=== PATIENT | male | born 1985 | race Caucasian/White ===

== ENCOUNTER 2024-02-28 21:34 | Observation (INO) | payer OTHER ==
[~2024-02-28] VITALS: Ht 185.4 cm; Wt 83.9 kg
[2024-02-28] MEDS ORDERED: ZOLOFT10013 PO (22:40)
[2024-02-29 00:54] LABS: BASOPHILS ABSOLUTE AUTO 0.03 K/mm3 (0.00-0.23); BASOPHILS PERCENT AUTO 0 % (0-2); EOSINOPHILS ABSOLUTE AUTO 0.03 K/mm3 (0.00-0.68); EOSINOPHILS PERCENT AUTO 0 % (0-6); Hemoglobin 14.1 g/dL (13.5-17.5); IMMATURE GRAN ABSOLUTE AUTO 0.02 K/mm3 (0.00-0.10); IMMATURE GRAN PERCENT AUTO 0 % (0-1); LYMPHOCYTES ABSOLUTE AUTO 3.96 K/mm3 (0.84-5.20); LYMPHOCYTES PERCENT AUTO 51 % (21-46); MONOCYTES ABSOLUTE AUTO 0.78 K/mm3 (0.16-1.47); MONOCYTES PERCENT AUTO 10 % (4-13); Mean Corpuscular HGB 29.4 pg (26.0-34.0); Mean Corpuscular HGB Conc 33.6 g/dL (31.5-36.5); Mean Corpuscular Volume 88 fL (80-100); Mean Platelet Volume 9.8 fL (9.1-12.4); NEUTROPHILS ABSOLUTE AUTO 3.01 K/mm3 (1.96-9.15); NEUTROPHILS PERCENT AUTO 38 % (41-73); Platelet Count 304 K/mm3 (150-400); RDW Coefficient Variation 13.2 % (11.7-14.2); RDW Standard Deviation 42.5 fL (35.1-46.3); Red Blood Cell Count 4.79 M/mm3 (4.30-5.90); White Blood Cell Count 7.83 K/mm3 (4.00-11.30)
[2024-02-29 01:19] LABS: Ethanol (Alcohol), Blood, Med <3 mg/dL; Salicylate <1.7 mg/dL (2.8-20.0)
[2024-02-29 01:20] LABS: Acetaminophen, Random <2.0 ug/mL (10.0-30.0); Alanine Aminotransfer (ALT/SGP 24 U/L (12-78); Albumin, Blood 4.1 g/dL (3.4-5.0); Albumin/Globulin Ratio 1.1 (0.8-1.8); Alk Phos 75 U/L (50-136); Anion Gap 10 mmol/L (3-11); Aspartate Aminotrans (AST/SGOT 18 U/L (12-37); Bilirubin, Total 0.7 mg/dL (0.1-1.0); Blood Urea Nitrogen 21 mg/dL (8-24); Bun/Creatinine Ratio 20.4 (12.0-20.0); CO2, Blood 26 mmol/L (21-32); Calcium, Blood 8.6 mg/dL (8.5-10.1); Chloride, Blood 107 mmol/L (98-108); Creatinine, Blood 1.03 mg/dL (0.60-1.20); Globulin, Blood 3.7 g/dL (2.2-4.0); Glomerular Filtration Rate 97 (60-); Glucose, Blood 96 mg/dL (70-99); Potassium, Blood 3.5 mmol/L (3.5-5.5); Sodium, Blood 139 mmol/L (136-145); Total Protein, Blood 7.8 g/dL (6.4-8.2)
[2024-02-29 10:27] VITALS: BP 108/59
== END 2024-02-29 11:00 | disposition home or self-care (01) ==
LOC: ER 21:34 → EOR 21:35
PROVIDERS: ADMIT Student in an Organized Health Care Education/Training Program
DX: F32.A Depression, unspecified (principal); R45.851 Suicidal ideations; G47.00 Insomnia, unspecified; Z79.899 Other long term (current) drug therapy
CPT/HCPCS: 36415; 80053; 85025; 93005; 93010; 99285-25; G0378; G0480

== ENCOUNTER 2024-03-19 01:32 | Observation (INO) | payer OTHER ==
[~2024-03-19] VITALS: Ht 182.9 cm; Wt 81.1 kg
[~2024-03-19 01:32] MED LIST: ZOLOFT10013 PO
[2024-03-19] MEDS ORDERED: [UNRECOGNIZED DRUG - OTHER] IV ONE (01:45)
[2024-03-19] MEDS ORDERED: LORazepam 2 MG/ML 1ML Injection IV PRN ×2 (01:45→03:20)
[2024-03-19] MEDS ORDERED: NS 1,000 ML IV SCH (01:45)
[2024-03-19] MEDS ORDERED: Magnesium Sulf 2 GM/Water 50ML 50 ML IV ONE (01:50)
[2024-03-19] MEDS ORDERED: [UNRECOGNIZED DRUG - OTHER] IV ONE (01:55)
[2024-03-19 02:15] LABS: Ethanol (Alcohol), Blood, Med 4 mg/dL; Salicylate 1.7 mg/dL (2.8-20.0)
[2024-03-19 02:18] LABS: Alanine Aminotransfer (ALT/SGP 23 U/L (12-78); Albumin, Blood 4.2 g/dL (3.4-5.0); Albumin/Globulin Ratio 1.2 (0.8-1.8); Alk Phos 77 U/L (50-136); Anion Gap 13 mmol/L (3-11); Aspartate Aminotrans (AST/SGOT 16 U/L (12-37); Bilirubin, Total 0.5 mg/dL (0.1-1.0); Blood Urea Nitrogen 18 mg/dL (8-24); Bun/Creatinine Ratio 18.7 (12.0-20.0); CO2, Blood 24 mmol/L (21-32); Calcium, Blood 8.4 mg/dL (8.5-10.1); Chloride, Blood 105 mmol/L (98-108); Creatinine, Blood 0.96 mg/dL (0.60-1.20); Globulin, Blood 3.6 g/dL (2.2-4.0); Glomerular Filtration Rate 105 (60-); Glucose, Blood 96 mg/dL (70-99); Potassium, Blood 3.1 mmol/L (3.5-5.5); Sodium, Blood 139 mmol/L (136-145); Total Protein, Blood 7.8 g/dL (6.4-8.2)
[2024-03-19 02:19] LABS: Acetaminophen, Random <2.0 ug/mL (10.0-30.0)
[2024-03-19] MEDS ORDERED: Potassium Chloride 40 MEQ in NS 250 ML IV ONE (03:10)
[2024-03-19] MEDS ORDERED: Lactated Ringer's 1,000 ML IV ONE (03:10)
[2024-03-19 03:20] LABS: BASOPHILS ABSOLUTE AUTO 0.04 K/mm3 (0.00-0.23); BASOPHILS PERCENT AUTO 1 % (0-2); EOSINOPHILS ABSOLUTE AUTO 0.02 K/mm3 (0.00-0.68); EOSINOPHILS PERCENT AUTO 0 % (0-6); Hematocrit 41.7 % (37.0-53.0); Hemoglobin 13.6 g/dL (13.5-17.5); IMMATURE GRAN ABSOLUTE AUTO 0.01 K/mm3 (0.00-0.10); IMMATURE GRAN PERCENT AUTO 0 % (0-1); LYMPHOCYTES ABSOLUTE AUTO 2.53 K/mm3 (0.84-5.20); LYMPHOCYTES PERCENT AUTO 37 % (21-46); MONOCYTES ABSOLUTE AUTO 0.74 K/mm3 (0.16-1.47); MONOCYTES PERCENT AUTO 11 % (4-13); Mean Corpuscular HGB 28.8 pg (26.0-34.0); Mean Corpuscular HGB Conc 32.6 g/dL (31.5-36.5); Mean Corpuscular Volume 88 fL (80-100); Mean Platelet Volume 9.8 fL (9.1-12.4); NEUTROPHILS ABSOLUTE AUTO 3.47 K/mm3 (1.96-9.15); NEUTROPHILS PERCENT AUTO 51 % (41-73); Platelet Count 364 K/mm3 (150-400); RDW Standard Deviation 42.4 fL (35.1-46.3); Red Blood Cell Count 4.73 M/mm3 (4.30-5.90); White Blood Cell Count 6.81 K/mm3 (4.00-11.30)
[2024-03-19] MEDS ORDERED: NS 1,000 ML BAG IR ONE (03:30)
[2024-03-19] MEDS ORDERED: NS 1,000 ML IV ONE ×2 (03:35)
[2024-03-19 04:38] LABS: Alanine Aminotransfer (ALT/SGP 21 U/L (12-78); Albumin, Blood 3.9 g/dL (3.4-5.0); Albumin/Globulin Ratio 1.3 (0.8-1.8); Alk Phos 70 U/L (50-136); Anion Gap 11 mmol/L (3-11); Aspartate Aminotrans (AST/SGOT 15 U/L (12-37); Bilirubin, Total 0.5 mg/dL (0.1-1.0); Blood Urea Nitrogen 16 mg/dL (8-24); Bun/Creatinine Ratio 18.7 (12.0-20.0); CO2, Blood 24 mmol/L (21-32); Chloride, Blood 107 mmol/L (98-108); Creatinine, Blood 0.86 mg/dL (0.60-1.20); Globulin, Blood 3.1 g/dL (2.2-4.0); Glomerular Filtration Rate 115 (60-); Glucose, Blood 89 mg/dL (70-99); Magnesium, Blood 2.4 mg/dL (1.6-2.4); Potassium, Blood 3.5 mmol/L (3.5-5.5); Salicylate <1.7 mg/dL (2.8-20.0); Sodium, Blood 138 mmol/L (136-145)
[2024-03-19 06:43] LABS: U Amphetamine Screen Not Detected; U Barbituate Screen Not Detected; U Benzodiazapine Screen Not Detected; U Buprenorphine Screen Not Detected; U Cannabinoids Screen Not Detected; U Cocaine Screen Not Detected; U Methadone Screen Not Detected; U Methamphetamine Screen Not Detected; U Opiates Screen Not Detected; U Oxycodone Screen Not Detected; U Phencyclidine Screen Not Detected
[2024-03-19 07:44] VITALS: BP 116/79
--- NOTE | 2024-03-19 07:49 | NUR ---
Assumed care of pt on arrival to PCU 15 at 0724 from emergency department. Pt arrives with motherMeenu at bedside. Pt here for overdose of benadryl. 1:[address] Room mitigated. Pt A&O x 2. Does not know exact date. Overall pleasant and cooperative with care. Able to stand to transfer. Follows commands well. Resident team in to see patient at this time. SpO2 90% or greater RA. SR per monitor. BP stable.
--- NOTE | 2024-03-19 09:07 | NUR ---
Pt anxious and has made statements about wanting to leave. Resident MD notified. 2 MD hold initiated. Pt reports 1 PPD smoking cigarettes. Offered nicotine patch or gum by this RN and MD. Pt refuses at this time. Offered patient ativan to help with anxiety/agitation. Pt refuses at this time.
[2024-03-19] MEDS ORDERED: Nicotine Polacrilex 2 MG Gum PO PRN (09:30)
[2024-03-19] MEDS ORDERED: Nicotine 21 MG PATCH TOP SCH (09:35)
--- NOTE | 2024-03-19 12:14 | NUR ---
Pt resting comftably in bed at this time. Continues to refuse nicotine replacement or meds to manage anxiety. Hosp/resident team including attending and psychiatry in to see patient; plan for pt to discharge to [facility] today. Plan of care discussed with poison control center as well.
[2024-03-19 12:24] VITALS: BP 116/63
[2024-03-19 16:48] VITALS: BP 99/58
--- NOTE | 2024-03-19 17:49 | NUR ---
SUMMARY No acute changes since last note. Patient will be discharging to [facility]. Has been visiting with family this shift. Remains pleasant and cooperative with care. Less anxious than previously noted.
[2024-03-19 19:28] VITALS: BP 99/61
--- NOTE | 2024-03-19 22:03 | NUR ---
PT ESCORTED TO [facility] WITH SECURITY AND U NURSE, NO S/S OF DISTRESS.
== END 2024-03-19 21:51 ==
LOC: ER 01:32 → ERHOLD 01:33 → PCU 01:33 → ERHOLD 01:33 → PCU 07:30
PROVIDERS: Emergency Medicine; Student in an Organized Health Care Education/Training Program; ADMIT Student in an Organized Health Care Education/Training Program
DX: T45.0X2A Poisoning by antiallergic and antiemetic drugs, intentional self-harm, initial encounter (principal); F32.9 Major depressive disorder, single episode, unspecified; E86.0 Dehydration; R45.851 Suicidal ideations; F17.210 Nicotine dependence, cigarettes, uncomplicated
CPT/HCPCS: 51798; 71045; 80053; 82550; 83735; 84443; 85025; 93005; 93010; 96365; 96366; 96367; 96375; 99285-25; A9270; G0378; G0480; J2060; J3475; J3480; J7030; J7050

== ENCOUNTER 2024-12-01 17:05 | Observation (INO) | payer OTHER ==
[~2024-12-01] VITALS: Ht 185.4 cm; Wt 72.3 kg
[~2024-12-01 17:05] MED LIST changes: +ABILIFY MYCITE5 M2 PO; +MELA3 PO; +SERT100 PO
[2024-12-01 17:31] LABS: BASOPHILS ABSOLUTE AUTO 0.02 K/mm3 (0.00-0.23); BASOPHILS PERCENT AUTO 0 % (0-2); EOSINOPHILS ABSOLUTE AUTO 0.01 K/mm3 (0.00-0.68); EOSINOPHILS PERCENT AUTO 0 % (0-6); Hematocrit 38.4 % (37.0-53.0); Hemoglobin 12.7 g/dL (13.5-17.5); IMMATURE GRAN ABSOLUTE AUTO 0.01 K/mm3 (0.00-0.10); IMMATURE GRAN PERCENT AUTO 0 % (0-1); LYMPHOCYTES ABSOLUTE AUTO 2.33 K/mm3 (0.84-5.20); LYMPHOCYTES PERCENT AUTO 32 % (21-46); MONOCYTES ABSOLUTE AUTO 0.67 K/mm3 (0.16-1.47); MONOCYTES PERCENT AUTO 9 % (4-13); Mean Corpuscular HGB 28.8 pg (26.0-34.0); Mean Corpuscular HGB Conc 33.1 g/dL (31.5-36.5); Mean Corpuscular Volume 87 fL (80-100); Mean Platelet Volume 8.9 fL (9.1-12.4); NEUTROPHILS ABSOLUTE AUTO 4.15 K/mm3 (1.96-9.15); NEUTROPHILS PERCENT AUTO 58 % (41-73); Platelet Count 420 K/mm3 (150-400); RDW Standard Deviation 44.8 fL (35.1-46.3); Red Blood Cell Count 4.41 M/mm3 (4.30-5.90); White Blood Cell Count 7.19 K/mm3 (4.00-11.30)
[2024-12-01] MEDS ORDERED: BUPRENORPHIN-N1 EAC1 SL (17:31)
[2024-12-01 17:50] LABS: Ethanol (Alcohol), Blood, Med <3 mg/dL; Salicylate <1.7 mg/dL (2.8-20.0)
[2024-12-01 18:03] LABS: Alanine Aminotransfer (ALT/SGP 23 U/L (12-78); Albumin, Blood 4.3 g/dL (3.4-5.0); Albumin/Globulin Ratio 1.4 (0.8-1.8); Alk Phos 73 U/L (50-136); Anion Gap 6 mmol/L (3-11); Aspartate Aminotrans (AST/SGOT 20 U/L (12-37); Bilirubin, Total 0.7 mg/dL (0.1-1.0); Blood Urea Nitrogen 10 mg/dL (8-24); Bun/Creatinine Ratio 11.2 (12.0-20.0); CO2, Blood 31 mmol/L (21-32); Calcium, Blood 9.5 mg/dL (8.5-10.1); Chloride, Blood 107 mmol/L (98-108); Creatinine, Blood 0.89 mg/dL (0.60-1.20); Glomerular Filtration Rate 113 (60-); Glucose, Blood 110 mg/dL (70-99); Potassium, Blood 3.4 mmol/L (3.5-5.5); Sodium, Blood 141 mmol/L (136-145); Total Protein, Blood 7.3 g/dL (6.4-8.2)
[2024-12-01 18:04] LABS: Source, Urine Voided
[2024-12-01 18:05] LABS: Acetaminophen, Random 111.4 ug/mL (10.0-30.0)
[2024-12-01 18:19] LABS: Appearance, Urine Cloudy (Clear); Bilirubin, Urine Neg (Neg); Blood, Urine 1+ (Neg); Color, Urine Yellow (P-Yellow); Glucose Qualitative, Urine Neg (Neg); Ketones, Urine Neg (Neg); Leukocyte Esterase, Urine Neg (Neg); Nitrite, Urine Neg (Neg); Protein, Urine 2+ (Neg); Specific Gravity, Urine 1.015 (1.003-1.022); Urobilinogen, Urine 1+ (Normal)
[2024-12-01 18:29] LABS: Amorphous Heavy (0-Heavy); Bacteria Rare /hpf; Squamous Epithelial Cells Rare /hpf (Few)
[2024-12-01 18:30] LABS: Mucus Light (0-Heavy)
[2024-12-01 18:38] LABS: U Amphetamine Screen DETECTED; U Barbituate Screen Not Detected; U Benzodiazapine Screen Not Detected; U Buprenorphine Screen DETECTED; U Cannabinoids Screen Not Detected; U Cocaine Screen Not Detected; U Methadone Screen Not Detected; U Methamphetamine Screen DETECTED; U Opiates Screen Not Detected; U Oxycodone Screen Not Detected; U Phencyclidine Screen Not Detected
[2024-12-01] MEDS ORDERED: LORazepam 2 MG/ML 1ML Injection IV ONE ×2 (18:40→18:55)
[2024-12-01] MEDS ORDERED: Haloperidol Lactate Inj. 5 MG/ML Injection IV ONE (19:15)
[2024-12-01] MEDS ORDERED: LORazepam 2 MG/ML 1ML Injection IV PRN (21:30)
[2024-12-01] MEDS ORDERED: NS 1,000 ML IV SCH (21:30)
[2024-12-01] MEDS ORDERED: NS 1,000 ML IV ONE ×3 (21:30→23:30)
[2024-12-01] MEDS ORDERED: Potassium Chloride 40 MEQ in NS 250 ML IV ONE (21:40)
[2024-12-02] VITALS (7 sets, daily range): BP systolic 112–131; BP diastolic 78–85
[2024-12-02] MEDS ORDERED: Digoxin 0.25 MG/ML 2ML Amp IV ONE (03:00)
[2024-12-02 04:12] LABS: Hematocrit 38.2 % (37.0-53.0); Hemoglobin 12.1 g/dL (13.5-17.5); Mean Corpuscular HGB 28.7 pg (26.0-34.0); Mean Corpuscular HGB Conc 31.7 g/dL (31.5-36.5); Mean Corpuscular Volume 91 fL (80-100); Platelet Count 349 K/mm3 (150-400); RDW Coefficient Variation 14.3 % (11.7-14.2); RDW Standard Deviation 47.2 fL (35.1-46.3); Red Blood Cell Count 4.22 M/mm3 (4.30-5.90); White Blood Cell Count 5.91 K/mm3 (4.00-11.30)
[2024-12-02 04:40] LABS: Albumin, Blood 3.5 g/dL (3.4-5.0); Albumin/Globulin Ratio 1.4 (0.8-1.8); Bilirubin, Total 0.6 mg/dL (0.1-1.0); Bun/Creatinine Ratio 11.4 (12.0-20.0); Calcium, Blood 8.5 mg/dL (8.5-10.1); Creatinine, Blood 0.7 mg/dL (0.60-1.20); Globulin, Blood 2.5 g/dL (2.2-4.0)
--- NOTE | 2024-12-02 06:47 | NUR ---
SHIFT SUMMARY PATIENT IS A&O X4. PATIENT ADMITTED FOR INTENTIAL OD, DENIES ANY CURRENT SI. VITAL SIGNS STABLE. POISON CONTROL UPDATED WITH PATIENT'S CURRENT STATUS. PATIENT IS ABLE TO STAND AND TRANSFER INDEPENDENTLY. PATIENT ON ROOM AIR. WILL CONTINUE TO MONITOR.
[2024-12-02] MEDS ORDERED: Enoxaparin 40 MG/0.4 ML SYR SC SCH (09:00)
[2024-12-02] MEDS ORDERED: BUPRENORPHIN-N1 EAC1 SL (09:09)
[2024-12-02] MEDS ORDERED: Sertraline HCl 100 MG Tab PO SCH (14:42)
[2024-12-02] MEDS ORDERED: Buprenorphine HCL/Naloxone HCL 8MG-2MG Tab SL SCH ×2 (15:00→21:00)
--- NOTE | 2024-12-02 17:46 | NUR ---
SHIFT SUMMARY: PATIENT WAS CALM AND COOPERATIVE WITH CARE. HAD FAMILY VISITING TODAY VISIBLY ANXIOUS INITIALLY DURING VISIT, I OBSERVED WRINGING OF THE HANDS AND SUBSIDED WHEN FAMILY LEFT. PATIENT BLADDER SCANNED, POST VOID BLADDER 49ML. Q4 BLADDER SCAN DISCONTINUED, VOIDING APPROPRIATELY. DISCHARGING TO [facility] 12/03/2024 PER PSYCH AND PSYCH EVAL COMPLETED TODAY. TYLENOL LEVELS WITHIN NORMAL LIMITS. CONTINUES WITH 1:1 SITTER AT BEDSIDE SUBOXONE AND SERTRALINE RESTARTED TODAY PER OCT. POISON CONTROL UPDATED AND DISCHARGED PATIENT. NO OTHER CONCERNS.
--- NOTE | 2024-12-02 19:21 | NUR ---
SHIFT SUMMARY- PT ARRIVED A TRANSFER FROM PCU 3 AT 1842. HE ARRIVED BY WC WITH HIS SITTER. PT IS MODERATE SI RISK AND THE ROOM WAS MITIGATED, BATHROOM AND CLOSET ARE LOCKED. PT WAS ASSISTED TO THE BED, SHORT CALL CORD IN PLACE. PT IS INDEPENDENT IN THE ROOM. NO CURRENT S&S OF DISTREESS NOTED, WILL PASS ON TO NIGHT RN IN BEDSIDE REPORT.
[2024-12-03 00:16] VITALS: BP 121/70
[2024-12-03 03:36] VITALS: BP 123/67
[2024-12-03 07:25] VITALS: BP 110/69
--- NOTE | 2024-12-03 07:50 | NUR ---
SHIFT SUMMARY AT START OF SHIFT, PT LYING IN BED. PT HAS A 1:1 SITTER FOR SI PRECAUTIONS. PT IS PLEASANT AND COOPERATIVE WITH HIS CARE. HE SLEPT THROUGH MOST OF SHIFT WITHOUT INCIDENT.
[2024-12-03 08:32] LABS: Albumin/Globulin Ratio 1.2 (0.8-1.8); Bilirubin, Total 0.3 mg/dL (0.1-1.0); Bun/Creatinine Ratio 12.4 (12.0-20.0); Calcium, Blood 7.9 mg/dL (8.5-10.1); Creatinine, Blood 0.65 mg/dL (0.60-1.20); Globulin, Blood 2.6 g/dL (2.2-4.0); Total Protein, Blood 5.6 g/dL (6.4-8.2)
[2024-12-03] MEDS ORDERED: Nicotine Polacrilex 2 MG Gum PO PRN (10:05)
[2024-12-03] MEDS ORDERED: NICO2 PO (12:18)
--- NOTE | 2024-12-03 15:30 | NUR ---
DISCHARGE NOTE- PT WAS TRANSFERED TO [facility]. IV DC'D AT THE TIME OF TRANSFER. TELE DC'D AT THE TIME OF TRANSFER. PT WAS ESCORTED WITH [facility] RN AND SECURITY ON FOOT. THE PT BELONGINGINGS WERE LOCATED IN THE CRISIS UNIT, STAFF THERE ARE TAKING THE ITEMS TO THE DOOR THE PT AND HIS ESCORT ARE GOING TO. NO CURRENT S&S OF DISTRESS NOTED AT THE TIME OF DISCHARGE.
== END 2024-12-03 15:11 | disposition other institution (70) ==
LOC: ER 17:05 → ERHOLD 17:06 → PCU 17:06 → MEDS 12-02 18:40
PROVIDERS: Emergency Medicine; Internal Medicine; Nurse Practitioner Acute Care; ADMIT Student in an Organized Health Care Education/Training Program
DX: T44.3X2A Poisoning by other parasympatholytics [anticholinergics and antimuscarinics] and spasmolytics, intentional self-harm, initial encounter (principal); T39.1X2A Poisoning by 4-Aminophenol derivatives, intentional self-harm, initial encounter; F15.10 Other stimulant abuse, uncomplicated; F33.2 Major depressive disorder, recurrent severe without psychotic features; E87.6 Hypokalemia; Z79.899 Other long term (current) drug therapy
CPT/HCPCS: 36415; 80053; 80320; 81001; 85025; 85027; 93005; 93010; 96361; 96365; 96366; 96372; 96375; 99285-25; A9270; G0378; G0480; J1630; J1650; J2060; J3480; J7030; J7050

== ENCOUNTER 2024-12-03 12:43 | Inpatient (IN) | payer OTHER ==
[~2024-12-03] VITALS: Ht 188 cm; Wt 75.9 kg
[~2024-12-03 12:43] MED LIST changes: +BUPRENORPHIN-N1 EAC1 SL; +NICO2 PO
[2024-12-03] MEDS ORDERED: Ondansetron 4 MG SoluTab MM PRN (14:35)
[2024-12-03] MEDS ORDERED: Polyethylene Glycol 3350 17 gm PO PRN (14:35)
[2024-12-03] MEDS ORDERED: Calcium Carbonate 500 MG Tab Chew PO PRN (14:40)
[2024-12-03] MEDS ORDERED: TraZODone HCl 50 MG Tab PO PRN (14:40)
[2024-12-03] MEDS ORDERED: LORazepam 2 MG/ML 1ML Injection IM PRN (14:40)
[2024-12-03] MEDS ORDERED: DiphenhydrAMINE HCl 50 MG Cap PO PRN (14:40)
[2024-12-03] MEDS ORDERED: Melatonin 3 MG Tab PO PRN (14:40)
[2024-12-03] MEDS ORDERED: OLANZapine ODT 10 MG Tab MM PRN (14:40)
[2024-12-03] MEDS ORDERED: Aluminum Hydroxide 320MG/5ML 473 ML PO PRN (14:40)
[2024-12-03] MEDS ORDERED: Haloperidol Lactate Inj. 5 MG/ML Injection IM PRN (14:45)
[2024-12-03] MEDS ORDERED: Ibuprofen 600 MG Tab PO PRN (14:45)
[2024-12-03] MEDS ORDERED: DiphenhydrAMINE HCl 50 MG/ML 1ML Vial IM PRN (14:45)
[2024-12-03] MEDS ORDERED: LORazepam 2 MG Tab PO PRN (14:45)
[2024-12-03] MEDS ORDERED: Haloperidol 5 MG Tab PO PRN (14:45)
[2024-12-03] MEDS ORDERED: HydrOXYzine Pamoate 50 MG Cap PO PRN (14:45)
[2024-12-03 15:34] VITALS: BP 99/67
[2024-12-03 15:53] VITALS: BP 99/67
[2024-12-03] MEDS ORDERED: Nicotine Polacrilex 2 MG Gum PO PRN (16:50)
--- NOTE | 2024-12-03 17:05 | NUR ---
ADMISSION NOTE PT BROUGHT TO [facility] BY SMILEY TRUJILLO AND SECURITY. PT ARRIVES A&O, CALM, COOPERATIVE, AND DENIES ANY HI/SI/AVTH. BELONGINGS WERE LOGGED AND PLACED IN TOTE BY MHA. 2 RN SKIN ASSESSMENT PERFORMED BY THIS RN AND MARTI MCGHEE RN. NO OBVIOUS SKIN LESIONS, RASHES, OR WOUNDS. PT DRESSED SELF IN U SCRUBS. PT WAS CALM AND COOPERATIVE DURING INTAKE QUESTIONS AND WAS ABLE TO ANSWER ON HIS OWN. HE STATES HE INJESTED 25 TYLENOL PM TABLETS WITH INTENT TO SELF HARM SO HE COULD CAUSE PAIN TO HIS S/O THEY WERE ARGUING AND SHE MAKING HIM LIVE ON HIS OWN. HE STATES THE THOUGHT OF SI WAS SUDDEN AND HE IMPULSIVELY TOOK THE TABS ON A SPONTANEOUS THOUGHT. HE STATES HE DID IT TO MAKE HER SUFFER IN PAIN TO GET BACK AT HER FOR THE BREAK UP. PT'S S/O CALLED HIS MOTHER WHO NOTIFIED EMS AND HAD HIM BROUGHT TO THE ED. 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 HE HAS BEEN STAYING WHERE HE CAN INCLUDING [facility] [facility]. PT DENIES ANY OTHER FORMS OF SELF HARM AND NONE ARE OBVIOUS DURING INTAKE. PT SIGNED MOST FORMS. HE WAS GIVEN A TOUR OF THE FACILITIES AND HIS ROOM. HE WAS ORIENTED TO PHONE AND VISITATION RULES AND UNIT PRIVACY EXPECTATIONS. PT WAS GIVEN A PIECE OF NICOTINE GUM PER HIS REQUEST. DR. ROCK WAS NOTIFIED OF PT'S ARRIVAL TO UNIT.
[2024-12-03 19:30] VITALS: BP 116/71
[2024-12-03] MEDS ORDERED: Buprenorphine HCL/Naloxone HCL 8MG-2MG Tab SL SCH (21:00)
--- NOTE | 2024-12-04 04:49 | NUR ---
SHIFT SUMMARY: PATIENT WAS IN THE DAYROOM AT THE BEGINNING OF THE SHIFT, WATCHING A MOVIE WITH STAFF AND PEERS. HE WAS PLEASANT AND WELCOMING TO HIS PEERS AND ATTENTIVE AND FRIENDLY TO STAFF. HE DENIED ANY THOUGHTS OF SUICIDE OR SELF HARMING THIS SHIFT. HE PARTICIPATED IN SNACK AND WRAP UP GROUP AT 1999. HE WAS COMPLIANT WITH MEDICATION ADMINISTRATION, AND HAD PRN TRAZODONE AND MELATONIN. HE CONTINUED WATCHING THE MOVIE AFTER SNACK, AND THEN WENT TO BED, WHERE HE WAS NOTED TO BE RESTING QUIETLY WITH EYES CLOSED AND RESPIRATIONS CONFIRMED FOR THE REMAINDER OF THE SHIFT. CONTINUING TO MONITOR FOR SAFETY WITH Q15 MINUTE CHECKS.
[2024-12-04 08:01] VITALS: BP 110/62
[2024-12-04] MEDS ORDERED: Sertraline HCl 100 MG Tab PO SCH (09:00)
[2024-12-04] MEDS ORDERED: Buprenorphine HCL/Naloxone HCL 8MG-2MG Tab SL SCH (09:00)
[2024-12-04] MEDS ORDERED: Multivitamins 1 Tab PO SCH (09:00)
--- NOTE | 2024-12-04 16:35 | NUR ---
SHIFT SUMMARY: PT HAS PARTICIPATED IN ALL GROUP SESSIONS TODAY. NO C/O SI, HI, OR ANY HALLUCINATIONS. PT ANSWERS ALL QUESTIONS BUT DOES NOT GIVE DETAILS OR DISCUSS HOW HE FEELS ABOUT ISSUES HE IS FACING. SPOKE ON PHONE TO MOTHER THIS EVENING. CONTINUE EVERY 15 MINUTE SAFETY CHECKS.
--- NOTE | 2024-12-04 16:44 | NUR ---
PT C/O INCREASING ANXIETY. STATES HAS BEEN INCREASING THROUGHOUT THE DAY AND VISTARIL GIVEN EARLIER DID NOT WORK. NOTICED BEHAVIORS OF INCREASING ANXIETY. MEDICATED WITH ATIVAN PER EMAR.
--- NOTE | 2024-12-04 18:41 | NUR ---
PATIENT CONTINUES TO C/O INCREASED ANXIETY. REVIEWED TOOLS/SKILLS TO USE TO HELP PROCESS ANXIETY. HE IS ABLE TO VERBALIZE APPROPRIATE MECHANISMS TO ASSIST. DISCUSSION HELD REGARDING SPEAKING WITH MD TO ADD DAILY MEDICATION FOR ANXIETY PATIENT STATES ZOLOFT WORKS GREAT FOR HIS DEPRESSION BUT HIS ANXIETY IS UNCONTROLLED AT HOME. WILL REPORT TO NOC SHIFT RN TO REVIEW WITH MD.
[2024-12-04 20:00] VITALS: BP 114/74
--- NOTE | 2024-12-05 05:02 | NUR ---
PATIENT WAS IN THE DAYROOM AT THE BEGINNING OF THE SHIFT, WATCHING A MOVIE WITH STAFF AND PEERS. HE DENIED SUICIDAL IDEATION OR THOUGHTS OF SELF HARMING. HE STATED THAT HE HAD A "GOOD DAY" AND WAS POSITIVE ABOUT THE FUTURE. HE WAS PLEASANT AND COOPERATIVE WITH CARES. HE PARTICIPATED IN SNACK AND WRAP UP GROUP AT 2000 IN THE DINING AREA. HE WAS COMPLIANT WITH EVENING MEDICATION ADMINISTRATION. HE CONTINUED TO WATCH THE MOVIE IN THE DAYROOM AFTER SNACK, AND THEN WENT TO BED ABOUT 2130. HE WAS NOTED TO BE RESTING QUIETLY IN BED WITH EYES CLOSED AND RESPIRATIONS CONFIRMED FOR THE REMAINDER OF THE SHIFT. CONTINUING TO MONITOR FOR SAFETY WITH Q15 MINUTE CHECKS.
[2024-12-05 08:25] VITALS: BP 101/62
--- NOTE | 2024-12-05 17:08 | NUR ---
SHIFT SUMMARY: PT A/O X4. DENIES TO BE SI, HI, AND AVH. STATED HE SHOULD HAVE MADE A BETTER CHOICE AND NOT GOTTEN ADMITTED FOR HIS "STUPITY". MED COMPLIANT. ATE MEALS. PT WAS ANXIOUS TODAY. GIVEN VISTARIL AND IT DIDN'T HELP MUCH. GIVEN ZYPREXA AT 1420 AND IT WAS EFFECTIVE. SLEPT UNTIL DINNER.. ASKED PT IF IT HELPED HIM AND HE STATED "YES THANK YOU". UP FOR DINNER AT THIS TIME. WILL CONTINUUE TO MONITOR.
[2024-12-05 19:41] VITALS: BP 101/63
--- NOTE | 2024-12-06 04:17 | NUR ---
SHIFT SUMMARY: PATIENT WAS IN THE DAY ROOM AT THE BEGINNING OF THE SHIFT, WATCHING A MOVIE. HE INTERACTED WELL WITH STAFF AND PEERS. HE DENIED SUICIDAL IDEATION OR FEELING LIKE SELF HARMING. HIS AFFECT WAS SAD/DEPRESSED BUT HE STATED, "I HAD A GOOD DAY". HE DID NOT C/O ANXIETY THIS SHIFT. HE WAS COMPLIANT WITH EVENING MEDICATIONS. HE PARTICIPATED IN SNACK AND WRAP UP GROUP AT 1999. HE FINISHED WATCHING THE MOVIE AND THEN WENT TO HIS ROOM. HE WAS IN BED RESTING WITH EYES CLOSED AND RESPIRATIONS CONFIRMED FOR THE REMAINDER OF THE SHIFT. CONTINUING TO MONITOR FOR SAFETY WITH Q15 MINUTE CHECKS.
[2024-12-06 12:19] VITALS: BP 133/80
--- NOTE | 2024-12-06 17:04 | NUR ---
SHIFT SUMMARY: PT A/OX4. DENIES SI, HI ,AND AVH. PT IS IN A "HAPPY " MOOD HE SAID. HAS PARTICIPATED IN GROUPS AND WATCHED TV IN THE GROUP ROOM. BECAME ANXIOUS AND ZYPREXA GIVEN AT 1230. PT IS ASKING FOR NICOTINE GUM EVERY 2 HOURS. TALKED WITH MOTHER ON PHONE. UP FOR DINNER AT THIS TIME. WILLL CONTINUE TO MONITOR.
[2024-12-06 19:42] VITALS: BP 122/75
--- NOTE | 2024-12-07 04:52 | NUR ---
SHIFT SUMMARY PATIENT IN [place] WATCHING TV AND VISITING WITH STAFF AND PEERS. DENIES SI,HI OR AVH. VERBALIZED THAT HE IS "TIRED". COOPERATIVE WITH MEDICATIONS. APPEARS TO BE SLEEPING WELL T/O NIGHT RESP EVEN AND UNLABORED. CONTINUE TO MONITOR Q15MIN
[2024-12-07 08:20] VITALS: BP 117/74
--- NOTE | 2024-12-07 17:21 | NUR ---
SHIFT SUMMARY PT DENIES ANY SI/HI/AVTH THIS SHIFT. HE HAD MULTIPLE C/O ANXIETY TODAY WITH NO OBVIOUS TRIGGERS NOTED AND HE SPECIFICALLY ASKED FOR ZYPREXA AND INFORMS RN'S THAT VISTARIL DOES NOT WORK ON HIM. PT HAD MULTIPLE PRN NICOTINE GUM. HE INTERACTED WITH PEERS WELL AND ATTENDED MEALS AND GROUPS. ALL Q15 MIN CHECKS COMPLETED.
[2024-12-07 20:00] VITALS: BP 113/63
--- NOTE | 2024-12-08 04:48 | NUR ---
SHIFT SUMMARY NO ACUTE EVENTS. PT DENIES SI, HI, AVTH. ONLY COMPLAINT THIS SHIFT IS ANXIOUSNESS, TREATED PER EMAR. PT INTERACTS W/ PEERS AND WENT TO SNACKTIME. FRIENDLY W/ STAFF/PEERS. DECLINED SLEEP AID THIS EVENING.
[2024-12-08 08:00] VITALS: BP 123/68
--- NOTE | 2024-12-08 12:36 | NUR ---
Day Shift Assessment- Patient has a bright affect. Mood is congruent. He states that his medication feels "right" and is effective. He rates his depression at 2/10. Patient denies any hallucinations of any type. Welbutrin administration has changes to 9am and 4pm rather than 2100, because the patient reports it keeps him awake. That change begins today. Besides being helpful with depression, patient reports that his focus is also improved when Wellbutrin is ordered, helping with his ADHD SX. He is willing to have conversations regarding areas of his mental health that may feel uncomforortable. Patient denies having suicidal ideation, and states that he really didn't have intent to kill himself, but rather had an impulsive act "to get back at his girlfriend", who had taunted him to kill himself. Patient reports walking and talking work well when he begins to feel hopeless/sad. Patient is a current patient of Dr. Low at [facility]. He sees Malorie Casas at [facility] with the MAT program (Sobia Dixon), and states the Suboxone has been working well. He would like to go to sober living when he is done with [facility] treatment. Patient has a 1 year old boy who he is looking forward to seeing upon discharge. Patient repots that his mother is good source of support. Family and friends are supportive. Patient is looking forward to being discharged.
--- NOTE | 2024-12-08 14:41 | NUR ---
IMPORTANT DISCHARGE INFORMATION PATIENT'S MOTHER (BLOSSOM) WILL PICK HIM UP AT 3:30PM ON 12/09/24 TO TAKE HIM TO FOLLOW UP/CECILY APPOINTMENT WITH DR. SALINAS AT 4:15PM. FOLLOW UP APPOINTMENT WITH PCP ON 12/11/24 AT 11:15AM, MILAGROS GARCÍA SEXUAL HEALTH PHYSICIAN, [facility]. PHARMACY: [facility]
[2024-12-08] MEDS ORDERED: BuPROPion HCl SR 100 MG TabCR PO SCH ×2 (16:00→21:00)
--- NOTE | 2024-12-08 17:51 | NUR ---
PATIENT WAS ACTIVE ON THE UNIT THIS SHIFT. HE DID PARTICIPATE IN GROUP. PATIENT IS ABLE TO VERBLAIZE HIS NEEDS, REQUESTING MEDICATION WHEN HE FELT IT MAY HELP. THIS EVENING HE REQUESTED SOMETHING FOR HIS ANXIETY. MASS SCORE OF 6. HE RECIEVED A 10MG ODT ZYPREXA. PATIENT DENIES ANY THOUGHT OF SUICIDE OR SELF HARM AND IS ANTICIPATING BEING DISCHARGED TOMORROW. THE THOUGHT OF HIS DISCHARGE IS THE REASON FOR HIS ANXIETY AT THIS TIME. HE HAS AN APPOINTMETMENT SCHEDULED AT 4PM TOMORROW AT [facility] WHERE HE IS SEEN FOR PSYCH AND FOR MAT. PATIENT MAKES GOOD EYE CONTACT AND IS OPEN TO DISCUSSION ABOUT HIS MENTAL HEALTH AND SYMPTOMS. PATIENT REPORTS THAT THE PRN ZYPREXA IS BEGINNING TO REDUCE HIS ANXIETY ALREADY. HE IS CURRENTLY SITTING IN THE DAY ROOM WITH PEERS WATCHING TELEVISION.
[2024-12-08] MEDS ORDERED: BUPR100ER PO (18:11)
--- NOTE | 2024-12-08 18:23 | NUR ---
PHARMACY- PATIENT REPORTS THAT HIS CHOICE OF PHARMACY IS [facility] IN [place]. IT APPEARS HE WILL HAVE A SCRIPT TO [facility] [facility] [facility] AFTER DISCHARGE FOR BUPROPION HCL SR12 100MG BID, AT 0800, 1600.
[2024-12-08 20:00] VITALS: BP 121/77
--- NOTE | 2024-12-09 04:16 | NUR ---
SHIFT SUMMARY: PATIENT WAS IN HIS ROOM RESTING AT THE BEGINNING OF THE SHIFT. HE WAS AWAKE, AND TOLD RN HE IS "EXCITED AND SCARED TO LEAVE" AND "MOSTLY EXCITED". HE STATED THAT "I'M ANXIOUS, BUT IT ISN'T REALLY IN A BAD WAY." HE DENIED SUICIDAL IDEATION AND FEELINGS OF SELF HARMING THIS SHIFT. HE DECLINED OFFER OF PRN FOR ANXIETY, STATING, "I THINK I CAN HANDLE IT." HE PARTICIPATED IN SNACK AND WRAP UP GROUP IN THE DINING AREA AT 1999. HE WAS COMPLIANT WITH EVENING MEDICATIONS. HE WATCHED THE TELEVISION FOR A SHORT TIME AFTER SNACK, AND THEN WENT TO BED, WHERE HE WAS NOTED TO BE RESTING QUIETLY WITH EYES CLOSED AND RESPIRATIONS CONFIRMED FOR THE REMAINDER OF THE SHIFT. CONTINUING TO MONITOR FOR SAFETY WITH Q15 MINUTE CHECKS.
[2024-12-09 07:09] VITALS: BP 110/82
--- NOTE | 2024-12-09 15:30 | NUR ---
NURSING DISCHARGE NOTE PT AA&OX4. PLEASANT AND COOPERATIVE WITH CARE. SPEECH AND EYE CONTACT APPROPRIATE. MOOD IS GOOD, AFFECT IS CONGRUENT. PT DENIES SI, AVH. PT MEDICATIONS, DX, OUTPATIENT APPT, SMOKING CEASATION AND HOW TO ACCESS MEDICAL RECORDS REVIEWED. PT VERBALIZED UNDERSTANDING AND DENIED ANY QUESTIONS. SAFETY PLAN COMPLETED. PT BELONGINGS RETURNED. PT DISCHARGED TO HOME WITH [facility] @[id number]
== END 2024-12-09 14:05 | disposition home or self-care (01) | DRG 885 ==
LOC: BHU 12:43
PROVIDERS: ADMIT Psychiatry & Neurology Psychiatry
DX: F33.2 Major depressive disorder, recurrent severe without psychotic features (principal); F15.10 Other stimulant abuse, uncomplicated; F17.210 Nicotine dependence, cigarettes, uncomplicated; F43.25 Adjustment disorder with mixed disturbance of emotions and conduct; F19.10 Other psychoactive substance abuse, uncomplicated; Z79.899 Other long term (current) drug therapy; Z79.1 Long term (current) use of non-steroidal anti-inflammatories (NSAID)
CPT/HCPCS: A9270